=== PATIENT | male | born 1990 | race Caucasian/White ===

== ENCOUNTER → 2016-04-27 | Outpatient (CLI) | payer BC ==
[2016-04-27 10:17] LABS: HEMATOCRIT 45.3 % (42.0-52.0); HEMOGLOBIN 15.5 g/dL (14.0-18.0); MEAN CORPUSCULAR HEMOGLOBIN 28.2 PG (27-31); MEAN CORPUSCULAR HGB CONC 34.2 g/dL (33-37); MEAN PLATELET VOLUME 10.3 FL (7.4-12.2); RDW COEFFICIENT OF VARIATION 13.5 % (11.5-14.5); RED BLOOD COUNT 5.49 10^6/uL (4.70-6.10); WHITE BLOOD COUNT 9.51 10^3/uL (4.8-10.8)
[2016-04-27 10:25] LABS: ASPARTATE AMINO TRANSFERASE 43 IU/L (21-57); BILIRUBIN,TOTAL 0.8 mg/dL (0.3-1.2); BLOOD UREA NITROGEN 17 mg/dL (7-22); CALCIUM 9.9 mg/dL (8.7-10.7); CHLORIDE 104 meq/L (98-112); EST GLOMERULAR FILTRATION > 60 (>60 ml/min/1.73m(2)); GLUCOSE 96 mg/dL (78-110); HDL CHOLESTEROL 40 mg/dL (40-150); POTASSIUM 4.4 meq/L (3.8-5.2); SODIUM 145 meq/L (135-145); TOTAL PROTEIN 8.1 g/dL (6.1-8.0); TRIGLYCERIDES 208 mg/dL (44-200)
== END ==
LOC: LAB 09:57
PROVIDERS: ATTEND Nurse Practitioner Family
DX: I10 Essential (primary) hypertension (principal)
CPT/HCPCS: 36415; 80053; 80061; 84443; 85027